=== PATIENT | female | born 1990 | race Caucasian/White ===

== ENCOUNTER 2019-02-15 13:55 | Emergency (ER) | payer SELFPAY ==
[~2019-02-15] VITALS: Ht 167.6 cm; Wt 83.5 kg
[2019-02-15 14:03] VITALS: BP 111/57
--- NOTE | 2019-02-15 14:12 | NUR ---
WAIT AT LOBBY
--- NOTE | 2019-02-15 15:29 | NUR ---
PT AMBULATED TO ER BED 01
--- NOTE | 2019-02-15 16:00 | NUR ---
C/O PRODUCTIVE COUGH & FEVER, SORE THROAT, BODY ACHE OF 8/10 PAIN FOR X 2 DAYS. LMP 07/25/18. PREG 29 WEEKS. MISCARRIAGE1, L1. TEMP 99.8 AT THIS TIME. NO RESPIRATORY DISTRESS, LUNGS CLEAR TO AUSCULTATION BILATERALLY, HR 146. PATIENT IS ALERT AND AWAKE. BED IS IN LOWEST POSITION, LOCKED, AND BED RAIL UPX1 MED HX: GALL BLADDER REMOVAL
[2019-02-15] MEDS ORDERED: MECLIZINE 25 MG TAB PO ONE (16:05)
[2019-02-15] MEDS ORDERED: methylPREDNISolone SS 125 MG/2 ML VIAL IVP ONE (16:05)
[2019-02-15] MEDS ORDERED: hydrOXYzine HCL 25 MG TAB PO ONE (16:05)
[2019-02-15] MEDS ORDERED: DEXT 5% / LACT RING 1,000 ML IV ONE (16:05)
--- NOTE | 2019-02-15 16:08 | NUR ---
PT MOVED TO BED 5 AT THIS TIME
--- NOTE | 2019-02-15 16:09 | NUR ---
REPORT GIVEN TO STU FLAHERTY
[2019-02-15] MEDS ORDERED: cefTRIAXone 1,000 MG VIAL ONE (16:10)
[2019-02-15 16:35] LABS: BASOPHILS % (AUTO) 0.1 % (0.0-2.0); EOSINOPHILS % (AUTO) 0.1 % (0.0-4.0); HEMATOCRIT 35.5 % (36-48); HEMOGLOBIN 11.8 g/dL (12.0-16.0); LYMPHOCYTES # (AUTO) 0.4 K/uL (2.5-16.5); LYMPHOCYTES % (AUTO) 3.3 % (20.5-51.1); MEAN CORPUSCULAR HEMOGLOBIN 31 pg (27-31); MEAN CORPUSCULAR HGB CONC 33 g/dL (33-37); MEAN CORPUSCULAR VOLUME 92.1 fL (80-94); MONOCYTES # (AUTO) 0.7 K/uL (0.8-1.0); MONOCYTES % (AUTO) 5.9 % (1.7-9.3); NEUTROPHILS # (AUTO) 11.1 K/uL (1.8-7.7); NEUTROPHILS % (AUTO) 90.6 % (42.2-75.2); PLATELET COUNT (AUTO) 200 K/uL (140-450); RED BLOOD CELL COUNT(AUTO) 3.86 MIL/uL (4.20-5.40); RED CELL DISTRIBUTION WIDTH 12.9 % (11.6-13.7); WHITE BLOOD COUNT (AUTO) 12.2 K/uL (4.8-10.8)
[2019-02-15 16:44] LABS: APPEARANCE,URINE CLEAR (CLEAR); BILIRUBIN,URINE NEGATIVE (NEGATIVE); BLOOD, URINE 1+ (NEGATIVE); COLOR,URINE YELLOW (YELLOW); LEUKOCYTE ESTERASE ,URINE NEGATIVE (NEGATIVE); NITRITE, URINE NEGATIVE (NEGATIVE); PH,URINE 6.5 (5.0-9.0); UGLUCOSE NEGATIVE (NEGATIVE)
[2019-02-15 17:00] LABS: WBC,URINE NONE SEEN /HPF (0-5)
[2019-02-15 17:03] LABS: ALBUMIN 2.6 g/dL (3.4-5.0); ANION GAP 12.9 (8-16); CARBON DIOXIDE 23.5 mmol/L (21-32); CREATININE 0.6 mg/dL (0.6-1.3); POTASSIUM 3.4 mmol/L (3.5-5.1); TOTAL BILIRUBIN 0.4 mg/dL (0.0-1.0)
[2019-02-15 17:04] LABS: MAGNESIUM 1.7 mg/dL (1.8-2.4)
--- NOTE | 2019-02-15 17:19 | NUR ---
PT RESTING IN BED, NO NEW NEEDS AT THIS TIME
[2019-02-15 17:57] VITALS: BP 120/61
--- NOTE | 2019-02-15 17:57 | NUR ---
IV removed, catheter intact and site benign. Applied folded 4x4 gauze and tape to stop bleeding.
--- NOTE | 2019-02-15 17:57 | NUR ---
Patient discharged with v/s stable. Written and verbal after care instructions given and explained. Patient alert, oriented and verbalized understanding of instructions. Ambulatory with steady gait. All questions addressed prior to discharge. ID band removed. Patient advised to follow up with PMD. Rx of TAMIFLU, PROMETHAZINE given. Patient educated on indication of medication including possible reaction and side effects. Opportunity to ask questions provided and answered.
--- NOTE | 2019-02-18 06:35 | NUR ---
Late entry. Confirmed with RN that D5LR IV completed at 1755 and Rocephin IVPB completed at 1710
== END 2019-02-15 17:57 | disposition home or self-care (01) ==
LOC: MED 13:55
DX: O99.513 Diseases of the respiratory system complicating pregnancy, third trimester (principal); J10.1 Influenza due to other identified influenza virus with other respiratory manifestations; J32.9 Chronic sinusitis, unspecified; Z3A.30 30 weeks gestation of pregnancy
CPT/HCPCS: 36415; 80053; 81001; 81025; 83735; 85025; 87804; 96365; 96375; 99283; J0696; J2930; J8597; J7060